=== PATIENT | male | born 1980 | race American Indian/Alaskan Native ===

== ENCOUNTER 2016-09-29 19:04 | Observation (INO) | payer BC ==
[2016-09-29 20:33] LABS: Bilirubin,Urine NEG (Negative); Blood,Urine SM (Negative); Ketones,Urine NEG (Negative); Leukocyte Esterase,Urine NEG (Negative); Nitrite,Urine NEG (Negative); RBC,Urine < 1.0 /HPF (0.0-6.0); Urobilinogen,Urine < 2.0 mg/dL (<2.0); WBC,Urine < 1.0 /HPF (0.0-6.0)
[2016-09-29 20:54] LABS: Basophils % (Auto) 0.5 % (0.0-1.8); Eosinophils % (Auto) 3.3 % (0.0-4.3); Hematocrit 40.5 % (35.5-45.6); Hemoglobin 13.5 gm/dl (11.8-15.2); Mean Corpuscular HGB Conc 33 % (32-34); Mean Corpuscular Hemoglobin 28 pg (28-32); Mean Corpuscular Volume 85 fl (84-94); Platelet Count 189 K/mm3 (140-440); Red Blood Count 4.77 M/mm3 (3.65-5.03); White Blood Count 7.4 K/mm3 (4.5-11.0)
[2016-09-29 20:55] LABS: BUN/Creatinine Ratio 26.47; Chloride 91.3 mmol/L (98-107); Potassium 4.7 mmol/L (3.6-5.0)
[2016-09-29 21:06] LABS: INR 0.88 (0.87-1.13); Partial Thromboplastin Time 26.9 Sec. (24.2-36.6)
[2016-09-30] MEDS ORDERED: NACL 0.9% 1000 ML 1,000 ML ONE (01:39)
[2016-09-30] MEDS ORDERED: NACL 0.9% 1000 ML 1,000 ML IV ONE ×3 (01:43→03:15)
[2016-09-30] MEDS ORDERED: D50W (25GM) Syringe IV PRN (02:04)
--- NOTE | 2016-09-30 02:46 | Emergency Department Report ---
HPI - General Chief Complaint: Hyperglycemia - HPI HPI: Room 2 The patient is a 36-year-old male presenting with a chief complaint nausea vomiting and feeling dehydrated. The patient states his diagnosis of an infected ingrown toenail on the right great toe 3 weeks ago and has been on antibiotics for this. The patient states he developed nausea vomiting 3 days ago and stopped taking his antibiotics and diabetes medication. Patient states for the past 2 days he's had intermittent substernal chest pain this has since resolved. Patient states he felt dehydrated and as though he was going to pass out. Patient denies any history of fever. The patient states his last stress test occurred last year and was normal. The patient does not believe he's had a cardiac catheterization Location: [see above] Duration: 3 days Quality: Sharp Severity: Currently 0/10 Modifying factors: [see above] Context: [see above] Mode of transportation: Unknown ED Past Medical Hx - Past Medical History Previous Medical History?: Yes Hx Diabetes: Yes (2003) - Surgical History Past Surgical History?: Yes Additional Surgical History: cataract surgery 2005 - Family History Family history: no significant - Social History Smoking Status: Never Smoker Substance Use Type: None - Medications Home Medications: Home Medications Medication Instructions Recorded Confirmed Last Taken Type HYDROcodone/APAP 5-325 [[place] 1 - 2 each PO Q6HR PRN #14 tablet 05/25/14 Unknown Rx 5/325] Lantus 30 units SQ HS 05/25/14 05/25/14 05/24/14 History Levofloxacin [Levaquin] 750 mg PO QDAY #10 tablet 05/25/14 Unknown Rx NovoLOG Flexpen 1 - 16 units SQ PRN PRN 05/25/14 05/25/14 Unknown History ED Review of Systems ROS: Stated complaint: DIZZY/FATIGUE/VOMITING/CHEST PAIN/DIABETIC Other details as noted in HPI Comment: All other systems reviewed and negative Constitutional: denies: chills, fever Eyes: denies: eye pain, eye discharge, vision change ENT: denies: ear pain, throat pain Respiratory: denies: cough, shortness of breath, wheezing Cardiovascular: chest pain Endocrine: no symptoms reported Gastrointestinal: nausea, vomiting Genitourinary: denies: urgency, dysuria Musculoskeletal: denies: back pain, joint swelling, arthralgia Skin: denies: rash, lesions Neurological: denies: headache, weakness, paresthesias Psychiatric: denies: anxiety, depression Hematological/Lymphatic: denies: easy bleeding, easy bruising Physical Exam - Physical Exam Vital Signs: Vital Signs 09/29/16 19:14 Temperature 98.2 F Pulse Rate 77 Respiratory 20 Rate Blood Pressure 120/82 [Right] O2 Sat by Pulse 100 Oximetry Physical Exam: GENERAL: The patient is well-developed well-nourished male lying on stretcher not appearing to be in acute distress. [] HEENT: Normocephalic. Atraumatic. Extraocular motions are intact. NECK: Supple. Trachea midline CHEST/LUNGS: Clear to auscultation. There is no respiratory distress noted. HEART/CARDIOVASCULAR: Regular. There is no tachycardia. There is no gallop rub or murmur. ABDOMEN: Abdomen is soft, nontender. Patient has normal bowel sounds. There is no abdominal distention. SKIN: There is no rash. There is no edema. There is no diaphoresis. There is no evidence of active infection in the right great toe NEURO: The patient is awake, alert, and oriented. The patient is cooperative. The patient has normal speech MUSCULOSKELETAL: There is no evidence of acute injury. ED Course Vital Signs 09/29/16 19:14 Temperature 98.2 F Pulse Rate 77 Respiratory 20 Rate Blood Pressure 120/82 [Right] O2 Sat by Pulse 100 Oximetry ED Medical Decision Making - Lab Data Result diagrams: 09/29/16 20:00 09/30/16 01:53 Laboratory Tests 09/29/16 09/29/16 09/29/16 19:24 20:00 20:00 WBC 7.4 RBC 4.77 Hgb 13.5 Hct 40.5 MCV 85 MCH 28 MCHC 33 RDW 14.0 Plt Count 189 Lymph % (Auto) 44.2 H [place] % (Auto) 4.7 Eos % (Auto) 3.3 Baso % (Auto) 0.5 Lymph # 3.3 [place] # 0.3 Eos # 0.2 Baso # 0.0 Seg Neutrophils % 47.3 Seg Neutrophils # 3.5 PT INR APTT VBG pH Sodium Potassium Chloride Carbon Dioxide Anion Gap BUN Creatinine Estimated GFR BUN/Creatinine Ratio Glucose POC Glucose 447 H Calcium Troponin T Urine Color Straw Urine Turbidity Clear Urine pH 5.0 Ur Specific [place] 1.022 Urine Protein 100 mg/dl Urine Glucose (UA) >=500 Urine Ketones Neg Urine Blood Sm Urine Nitrite Neg Urine Bilirubin Neg Urine Urobilinogen < 2.0 Ur Leukocyte Esterase Neg Urine WBC (Auto) < 1.0 Urine RBC (Auto) < 1.0 09/29/16 09/29/16 09/29/16 20:00 20:00 20:00 WBC RBC Hgb Hct MCV MCH MCHC RDW Plt Count Lymph % (Auto) [place] % (Auto) Eos % (Auto) Baso % (Auto) Lymph # [place] # Eos # Baso # Seg Neutrophils % Seg Neutrophils # PT 12.4 INR 0.88 APTT 26.9 VBG pH 7.303 L Sodium 131 L Potassium 4.7 Chloride 91.3 L Carbon Dioxide 24 Anion Gap 20 BUN 45 H Creatinine 1.7 H Estimated GFR 56 BUN/Creatinine Ratio 26.47 Glucose 420 H POC Glucose Calcium 9.0 Troponin T Urine Color Urine Turbidity Urine pH Ur Specific [place] Urine Protein Urine Glucose (UA) Urine Ketones Urine Blood Urine Nitrite Urine Bilirubin Urine Urobilinogen Ur Leukocyte Esterase Urine WBC (Auto) Urine RBC (Auto) 09/29/16 09/30/16 09/30/16 20:00 00:52 01:32 WBC RBC Hgb Hct MCV MCH MCHC RDW Plt Count Lymph % (Auto) [place] % (Auto) Eos % (Auto) Baso % (Auto) Lymph # [place] # Eos # Baso # Seg Neutrophils % Seg Neutrophils # PT INR APTT VBG pH Sodium Potassium Chloride Carbon Dioxide Anion Gap BUN Creatinine Estimated GFR BUN/Creatinine Ratio Glucose POC Glucose > 500 H Calcium Troponin T 0.024 0.017 Urine Color Urine Turbidity Urine pH Ur Specific [place] Urine Protein Urine Glucose (UA) Urine Ketones Urine Blood Urine Nitrite Urine Bilirubin Urine Urobilinogen Ur Leukocyte Esterase Urine WBC (Auto) Urine RBC (Auto) 09/30/16 01:53 WBC RBC Hgb Hct MCV MCH MCHC RDW Plt Count Lymph % (Auto) [place] % (Auto) Eos % (Auto) Baso % (Auto) Lymph # [place] # Eos # Baso # Seg Neutrophils % Seg Neutrophils # PT INR APTT VBG pH Sodium Potassium Chloride Carbon Dioxide Anion Gap BUN Creatinine Estimated GFR BUN/Creatinine Ratio Glucose POC Glucose Calcium Troponin T 0.018 Urine Color Urine Turbidity Urine pH Ur Specific [place] Urine Protein Urine Glucose (UA) Urine Ketones Urine Blood Urine Nitrite Urine Bilirubin Urine Urobilinogen Ur Leukocyte Esterase Urine WBC (Auto) Urine RBC (Auto) - EKG Data -: EKG Interpreted by Me EKG shows normal: sinus rhythm Rate: normal - EKG Data When compared to previous EKG there are: previous EKG unavailable Interpretation: normal EKG - Radiology Data Radiology results: image reviewed (chest x-ray) interpreted by me: Chest x-ray-no focal infiltrates, no pneumothorax - Differential Diagnosis DKA, ACS, GERD, pericarditis Critical care attestation.: If time is entered above; I have spent that time in minutes in the direct care of this critically ill patient, excluding procedure time. ED Disposition Clinical Impression: Diabetic hyperosmolar non-ketotic state, Chest pain Disposition: OP ADMIT IP TO THIS HOSP Is pt being admited?: Yes Does the pt Need Aspirin: No Condition: Fair Instructions: Chest Pain (ED), Diabetes Mellitus Type 2 in Adults (ED) Referrals: SAAD ALLEN MD [Primary Care Provider] - 3-5 Days Time of Disposition: 02:47 (hospitalist paged)
[2016-09-30] MEDS ORDERED: PLAVIX PO ONE (02:48)
[2016-09-30 02:55] LABS: BUN/Creatinine Ratio 27.64; Calcium 8.8 mg/dL (8.4-10.2); Chloride 91.1 mmol/L (98-107); Potassium 5.1 mmol/L (3.6-5.0)
[2016-09-30] MEDS ORDERED: NovoLIN R 100 UNITS in NACL 0.9% 99 ML IV SCH (03:00)
[2016-09-30 03:05] LABS: Magnesium 1.8 mg/dL (1.7-2.3); Phosphorous 3.9 mg/dL (2.5-4.5)
[2016-09-30] MEDS ORDERED: ZOFRAN IV PRN (03:26)
[2016-09-30] MEDS ORDERED: MORPHINE IV PRN (03:28)
[2016-09-30] MEDS ORDERED: NACL 0.9% 1000 ML 1,000 ML IV SCH (04:00)
[2016-09-30] MEDS: NITRO-BID 2% TP SCH ×4 (04:18→18:28)
[2016-09-30 04:49] LABS: Anion Gap 19 mmol/L; Blood Urea Nitrogen 45 mg/dL (9-20); Calcium 8.4 mg/dL (8.4-10.2); Carbon Dioxide 21 mmol/L (22-30); Chloride 95.7 mmol/L (98-107); Potassium 4.3 mmol/L (3.6-5.0); Sodium 131 mmol/L (137-145)
[2016-09-30 05:08] LABS: Glucose 554 mg/dL (75-100)
--- NOTE | 2016-09-30 05:31 | History and Physical Report ---
CHIEF COMPLAINT: Nausea and vomiting. Other complaints include weakness and feeling of dehydration. HISTORY OF PRESENT ILLNESS: The patient is a 36-year-old male who said he has been having nausea and vomiting going on for 3 days and also feels like he is dehydrated and feels weak. The patient said he stopped taking his diabetic medications and also the antibiotic he is taking for ingrowing toenails since 3 days ago because of nausea and vomiting. The patient also complained about intermittent chest pain, which he said has resolved and has been going on for 2 days. There was no history of fever, no history of chills. No history of cough or shortness of breath and there was also no history of diaphoresis or diarrhea. The patient said he has been on antibiotics for about 3 weeks for ingrowing toenails. PAST MEDICAL HISTORY: Pertinent for diabetes mellitus. PAST SURGICAL HISTORY: Pertinent for cataract surgery in 2005. FAMILY HISTORY: Noncontributory. SOCIAL HISTORY: The patient does not smoke cigarettes, does not drink alcohol, and does not use illicit drugs. MEDICATIONS: The patient is on [place] 5/325 1-2 tablets every 6 hours as needed for pain, Lantus insulin 30 units subcutaneous every night, Levaquin 750 mg daily, NovoLog FlexPen insulin 12 to 16 units subq as needed. ALLERGIES: There are no known drug allergies. REVIEW OF SYSTEMS: CONSTITUTIONAL: There is no fever, no chills, no diaphoresis. HEENT: There is no headache or sore throat. CARDIOVASCULAR: There is chest pain, but no orthopnea. RESPIRATORY: There is no shortness of breath or cough. GASTROINTESTINAL: Nausea and vomiting present. No abdominal pain, no diarrhea or constipation. NEUROLOGICAL: Generalized weakness present. There is no dizziness, no altered mental status. MUSCULOSKELETAL: There is no joint pain or swelling. DERMATOLOGICAL: There is no skin rash or itching. GENITOURINARY: There is no dysuria, hematuria, or flank pain. Rest of system review is okay. PHYSICAL EXAMINATION: GENERAL: At the time of exam, the patient was found to be alert, oriented x 3 and not in acute distress. VITAL SIGNS: Shows temperature of 98.2, pulse of 77, respirations 20, blood pressure 120/82, O2 sat of 100% on room air. HEENT: Showed pupils to be equal, round, reactive to light and accommodation. Extraocular muscles are intact. NECK: Supple with no JVD or carotid bruit. CARDIOVASCULAR SYSTEM: Show first and second heart sounds with no gallops or murmur. RESPIRATORY: Showed good air entry on both sides of the lung with no abnormal breath sounds. GASTROINTESTINAL SYSTEM: Show abdomen to be full, soft, nontender with no organomegaly or rigidity. NEUROLOGICAL: Showed no focal deficit. MUSCULOSKELETAL: Show no joint swelling or tenderness. DERMATOLOGICAL SYSTEM: Show no skin rash. GENITOURINARY: Showing no costovertebral angle tenderness. PERTINENT LABORATORY DATA AND IMAGING STUDIES: The patient had CBC done that came back unremarkable with a CBC differential showing elevated lymphocyte count of 44.2%. The patient's chemistry show low sodium level of 131 with a low chloride of 91.3, BUN was elevated with a value of 45 and creatinine was also elevated with a value of 1.7. The patient's initial blood glucose level was 420 with normal CO2 of 24, elevated anion gap of about 20. The patient's urinalysis came back unremarkable. Cardiac enzyme, troponin came back normal and the patient's calcium level was normal. IMAGING STUDIES: The patient had chest x-ray done with no report of any abnormalities. DIAGNOSIS: Hyperosmolar state. PLAN: The patient will be admitted to ICU and will continue IV regular insulin drip started in the Emergency Room. The patient will have Accu-Chek every hour and will have basic metabolic panel checked every 3 hours. The patient will be on nitro paste half inch to anterior chest wall q.6 hours, will be on IV normal saline running at about 150 mL an hour, which will be changed to IV D5 half normal saline at 125 mL an hour when blood sugar is below 250 mg per dL. The patient will be on IV morphine 2 mg every 4 hours as needed for pain and IV Zofran 4 mg every 6 hours for nausea and vomiting. The patient will be on Tylenol 650 mg by mouth every 4 hours for fever, headache and will be on oxygen by nasal cannula at 2 liter per minute. The patient will also be on aspirin 325 mg by mouth daily and DVT prophylaxis will be provided with heparin 5000 units subcutaneous q.12h. This patient will be on oxygen by nasal cannula at 2 liter per minute. The patient's blood glucose will be monitored and the patient switched to a.c. and q.h.s. when the blood glucose is back to normal. JOB# [id number] OCN/NTS
[2016-09-30 06:42] LABS: BUN/Creatinine Ratio 28.75; Calcium 8.9 mg/dL (8.4-10.2); Chloride 89.8 mmol/L (98-107); Potassium 5.1 mmol/L (3.6-5.0)
[2016-09-30 06:44] LABS: Creatine Kinase MB 6.7 ng/mL (0.0-4.0)
--- NOTE | 2016-09-30 07:20 | Admit Criteria Form ---
Admission Criteria Documentation: DIABETES Clinical Indications for Admission to Inpatient Care ([place]/check or initial the applicable condition/criteria) Admission is indicated by 1 or more of the following(1)(2)(3)(4)(5): [ ]a) Diabetic ketoacidosis as indicated by ALL the following(9): [ ]i) Hyperglycemia (eg, plasma glucose greater than 200 mg/ dL (11.1 mmol/L)) [ ]ii) Acidosis (eg, arterial or venous pH less than 7.30, serum bicarbonate level less than 15 mEq/L (mmol/L)) [A] [ ]iii) Moderate ketonuria or ketonemia [X]b) Hyperglycemic hyperosmolar state as indicated by ALL of the following: [X]i) Plasma glucose greater than 600 mg/dL (33.3 mmol/L) [ ]ii) Serum osmolality greater than 320 mOsm/kg (mmol/kg) [ ]iii) Neurologic dysfunction (eg, stupor, coma, hemiparesis , seizure)(14) [ ]c) Hyperglycemia requiring inpatient care as indicated by 1 or more of the following: [ ]i) Altered mental status that is severe or persistent [ ]ii) Dehydration that is severe or persistent [ ]iii) Vomiting that is severe or persistent [ ]iv) Unexplained fever or severe infection [ ]v) Significant electrolyte abnormality(e.g., hypokalemia, hyperkalemia, hypernatremia) not responsive to outpatient and observation care treatment Extended stay beyond goal length of stay may be needed for(3)(20) [ ]a) Treatment of precipitating causes(2) [ ]b) Development of significant hypoglycemia(22)(23) [ ]c) Complications of treatment(24) [ ]d) Complications of decompensated diabetes (e.g., acute gastric dilatation, persistent metabolic or neurologic derangement) (25) [ ]e) Active Comorbidities [ ]f) Older patients The original [employer] content created by [employer] has been revised. The portions of the content which have been revised are identified through the use of italic text or in bold,and [facility] has neither reviewed nor approved the modified material. All other unmodified content is copyright [employer]. Please see references footnoted in the original [facility] 2017 Admission Criteria Met: Yes
--- NOTE | 2016-09-30 08:40 | XRay Report ---
AP CHEST: HISTORY: chest pain AP view of the chest demonstrates a normal mediastinal and cardiac contour with clear lungs and normal bony and soft tissue structures. IMPRESSION: Unremarkable AP chest.
[2016-09-30 08:59] LABS: Anion Gap 16 mmol/L; Blood Urea Nitrogen 42 mg/dL (9-20); Calcium 8.5 mg/dL (8.4-10.2); Carbon Dioxide 26 mmol/L (22-30); Chloride 103.2 mmol/L (98-107); Glucose 80 mg/dL (75-100); Potassium 3.4 mmol/L (3.6-5.0); Sodium 142 mmol/L (137-145)
[2016-09-30] MEDS: HEPARIN SUB-Q SCH ×2 (09:55→22:07)
[2016-09-30] MEDS: ASPIRIN PO SCH (09:55)
[2016-09-30] MEDS ORDERED: TYLENOL PO PRN (12:25)
[2016-09-30] MEDS ORDERED: APRESOLINE IV PRN (12:37)
[2016-09-30] MEDS: NORCO 5/325 PO PRN (12:41)
[2016-09-30] MEDS ORDERED: NON-FORMULARY (Amlodipine 10 MG) PO SCH (12:45)
[2016-09-30 12:47] LABS: Anion Gap 18 mmol/L; BUN/Creatinine Ratio 29.28; Blood Urea Nitrogen 41 mg/dL (9-20); Calcium 8.3 mg/dL (8.4-10.2); Carbon Dioxide 24 mmol/L (22-30); Chloride 98.7 mmol/L (98-107); Glucose 242 mg/dL (75-100); Potassium 4.4 mmol/L (3.6-5.0); Sodium 136 mmol/L (137-145)
[2016-09-30 12:49] LABS: Creatine Kinase MB 5.9 ng/mL (0.0-4.0)
[2016-09-30] MEDS: NACL 0.9% 1000 ML 1,000 ML IV SCH ×2 (12:49→22:15)
[2016-09-30] MEDS: NORVASC PO SCH (14:12)
--- NOTE | 2016-09-30 15:45 | Event Note ---
Date: 09/30/16 Pt seen and examined. Will continue current management and plan as dictated in HPI. He will be step down to medsurg. Insulin drip will be discontinued, will start ADA diet and will resume subqu insulin.
[2016-09-30 21:33] LABS: Anion Gap 17 mmol/L; BUN/Creatinine Ratio 28.18; Blood Urea Nitrogen 31 mg/dL (9-20); Carbon Dioxide 24 mmol/L (22-30); Chloride 101.4 mmol/L (98-107); Glucose 279 mg/dL (75-100); Potassium 4.2 mmol/L (3.6-5.0); Sodium 138 mmol/L (137-145)
[2016-09-30] MEDS ORDERED: LANTUS 15 UNIT SQ SCH (22:00)
[2016-09-30] MEDS ORDERED: LEVEMIR SUB-Q SCH (22:00)
[2016-10-01 01:47] LABS: Anion Gap 15 mmol/L; Blood Urea Nitrogen 27 mg/dL (9-20); Calcium 8.3 mg/dL (8.4-10.2); Carbon Dioxide 26 mmol/L (22-30); Chloride 103.5 mmol/L (98-107); Glucose 204 mg/dL (75-100); Potassium 4.1 mmol/L (3.6-5.0); Sodium 140 mmol/L (137-145)
[2016-10-01] MEDS: NITRO-BID 2% TP SCH ×4 (07:00→18:10)
[2016-10-01] MEDS: HEPARIN SUB-Q SCH (09:18)
[2016-10-01] MEDS: ASPIRIN PO SCH (09:19)
[2016-10-01] MEDS: NORVASC PO SCH (09:19)
[2016-10-01] MEDS: NORCO 5/325 PO PRN (12:03)
[2016-10-01] MEDS ORDERED: LEVEMIR SUB-Q SCH (13:48)
--- NOTE | 2016-10-01 18:15 | Discharge Summary ---
Providers - Providers Date of Admission: 09/30/16 03:21 Date of discharge: 10/01/16 Attending physician: KENDRICK LY Primary care physician: SAAD ALLEN Hospitalization Condition: Fair Hospital course: The patient is a 36-year-old male presented with complaint of nausea vomiting and feeling dehydrated. The patient states his diagnosis of an infected ingrown toenail on the right great toe 3 weeks ago and has been on antibiotics for this. Patient also stated that for the past 2 days he's had intermittent substernal chest pain which was burning in type located retrosternally. In the ER patient noted to have blood glucose more than 600, low sodium and creatinine of 1.7. He was placed on aggressive IV fluid hydration and insulin drip. Insulin drip was discontinued and blood works improved and transitioned to subcutaneous insulin. He was followed with serial cardiac enzymes which were negative. Today, showed preserved ejection fraction. He denied any chest pain following admission and upon improvement of the blood glucose. He was placed on Novolin 70/30 twice a day and was discharged with home health he was instructed to monitor his blood glucose daily and to follow up with his PCP in 1 week. As patient denied any complaint of chest pain or heartburn during the admission, no PPI was started. He'll follow-up with his PCP and if heartburn recurs he was advised to take PPI under his PCP supervision. Discharge Diagnosis: DKA, resolved Nausea/vomiting - Likely due to DKA and underlying GERD Chest pain, noncardiac, due to GERD - Cardiac enzymes are normal, 2-D echo showed normal ejection fraction Hyponatremia, due to hyperglycemia - Resolved with IV fluid hydration [place], likely due to vasomotor nephropathy - Resolved with IV fluid hydration Hypertension, benign -Continue amlodipine Disposition: DC-01 TO HOME OR SELFCARE Time spent for discharge: 32 minutes Core Measure Documentation - Palliative Care Palliative Care/ Comfort Measures: Not Applicable - Core Measures Any of the following diagnoses?: none Exam - Constitutional Vitals: Temp Pulse Resp BP Pulse Ox 98.4 F 76 18 128/76 99 10/01/16 08:00 10/01/16 08:00 10/01/16 08:00 10/01/16 08:00 10/01/16 08:00 General appearance: Present: no acute distress, well-nourished - EENT Eyes: Present: PERRL ENT: hearing intact, clear oral mucosa - Neck Neck: Present: supple, normal ROM - Respiratory Respiratory effort: normal Respiratory: bilateral: CTA - Cardiovascular Heart Sounds: Present: S1 & S2. Absent: rub, click - Extremities Extremities: pulses symmetrical, No edema Peripheral Pulses: within normal limits - Abdominal General gastrointestinal: Present: soft, non-tender, non-distended, normal bowel sounds - Integumentary Integumentary: Present: clear, warm, dry - Musculoskeletal Musculoskeletal: gait normal, strength equal bilaterally - Psychiatric Psychiatric: appropriate mood/affect, intact judgment & insight - Neurologic Neurologic: CNII-XII intact, moves all extremities Plan Activity: advance as tolerated Weight Bearing Status: Weight Bear as Tolerated Diet: diabetic Additional Instructions: Monitor blood glucose daily every morning and at bedtime. Follow-up with PCP in one week. Follow up with: SAAD ALLEN MD [Primary Care Provider] - 3-5 Days Prescriptions: Insulin Detemir [Levemir] 18 units SUB-Q QHS 30 Days Insulin NPH, Human [NovoLIN N] 5 unit SUB-Q QAC 30 Days
[2016-10-01 19:11] VITALS: BP 141/95
== END 2016-10-01 19:54 | disposition home or self-care (01) ==
LOC: ED 19:04 → INTOOBSV 09-30 03:21 → CC1 09-30 03:21 → 3A 09-30 10:50
PROVIDERS: ADMIT Internal Medicine; ATTEND Internal Medicine
DX: E11.00 Type 2 diabetes mellitus with hyperosmolarity without nonketotic hyperglycemic-hyperosmolar coma (NKHHC) (principal); N17.0 Acute kidney failure with tubular necrosis; R07.89 Other chest pain; E87.1 Hypo-osmolality and hyponatremia; L60.0 Ingrowing nail; K21.9 Gastro-esophageal reflux disease without esophagitis; I10 Essential (primary) hypertension; Z98.49 Cataract extraction status, unspecified eye
CPT/HCPCS: 36415; 71010; 80048; 81001; 82550; 82553; 82805; 82962; 83735; 84100; 84484; 85025; 85610; 85730; 93005; 93010; 93306; 96361; 96365; 96366; 96372; 96375; 99285; G0378; J1644; J2405; J7030; J1815; J1818